=== PATIENT | female | born 1945 | race Caucasian/White ===

== ENCOUNTER 2023-01-19 06:06 | Inpatient (IN) | payer OTHER ==
[~2023-01-19] VITALS: Ht 160 cm; Wt 103.0 kg
[~2023-01-19 06:06] MED LIST: ACET-1156 PO; ACET-6 PO; ALEN35TA18 PO; ANAS1TAB7 PO; CALC667C PO; CARV3.1240 PO; CHOL100055 PO; DIPH25CA29 PO; FLUO-126 PO; MELA3TAB27 PO; METH5T PO; MONT-8 OR; NORPTMEDS CO; PRAV20TA3 GT; WARF3TAB22 PO
[2023-01-19] MEDS ORDERED: MORPHINE SULF PF 5 MG/10 ML VIAL ONE (06:27)
[2023-01-19] MEDS ORDERED: KETOROLAC TROMETH 30 MG/ML 1ML VIAL ONE ×2 (06:27→06:53)
[2023-01-19] MEDS ORDERED: TRANEXAMIC ACID 20 ML ONE (06:29)
[2023-01-19] MEDS ORDERED: BUPIVACAINE 0.25% INJ 50ML VIAL ONE ×2 (06:29→06:46)
[2023-01-19] MEDS ORDERED: VANCOMYCIN HCL 1000 MG VL ONE (06:31)
[2023-01-19] MEDS ORDERED: EPINEPHrine HCL 1 MG/1 ML AMP ONE (06:46)
[2023-01-19] MEDS ORDERED: DexAMETHasone SOD PHOS 4 MG/1ML SDV INJ ONE (06:46)
[2023-01-19] MEDS ORDERED: ACETAMINOPHEN IV 100 ML IV ONE (06:50)
[2023-01-19] MEDS ORDERED: ceFAZolin 1GM/50ML 100 ML IV ONE (06:50)
[2023-01-19] MEDS ORDERED: DexAMETHasone SOD PHOS 10MG/1ML VIAL INJ ONE (06:53)
[2023-01-19] MEDS ORDERED: PROPOFOL 10 MG/ML 20 ML IV ONE ×2 (06:53→08:13)
[2023-01-19] MEDS ORDERED: GLYCOPYRROLATE 0.2 MG/ML 1ML VIAL ONE (06:53)
[2023-01-19] MEDS ORDERED: ONDANSETRON HCL 4 MG/2 ML VIAL ONE (06:53)
[2023-01-19] MEDS ORDERED: LIDOCAINE 2% (LOCAL ANESTH.) PF 5ml SDV ONE (06:53)
[2023-01-19] MEDS ORDERED: PREGABALIN CAPSULE 75 MG CAP PO ONE (07:00)
[2023-01-19] MEDS ORDERED: ACETAMINOPHEN IV 1000 MG/100ML (10MG/ML) IV ONE (07:00)
[2023-01-19] MEDS ORDERED: CELECOXIB 100 MG CAP PO ONE (07:00)
[2023-01-19] MEDS ORDERED: PREGABALIN CAPSULE 75 MG CAP ONE (07:15)
[2023-01-19] MEDS ORDERED: MIDAZOLAM HCL 2MG/2ML 2ml VIAL (1mg/ml) ONE (07:16)
[2023-01-19] MEDS ORDERED: KETAMINE 50mg/ML 10ml Vial (500mg/10ml) IV ONE (07:20)
[2023-01-19] MEDS ORDERED: PHENYLEPHRINE HCL 10 MG/ML VL ONE (07:43)
[2023-01-19] MEDS ORDERED: STERILE WATER 10 ML ONE (07:43)
[2023-01-19] MEDS ORDERED: diphenhdrAMINE HCL 25 MG CAP PO PRN (09:00)
[2023-01-19] MEDS ORDERED: MORPHINE SULFATE INJ 2 MG/ml SYRG IV PRN (09:15)
[2023-01-19] MEDS ORDERED: HYDROcodone-ACET 5/325MG TAB PO PRN (09:15)
[2023-01-19] MEDS ORDERED: NITROGLYCERIN 0.4 MG SL TAB SL PRN (09:15)
[2023-01-19] MEDS: LACTATED RINGER'S 1,000 ML IV SCH ×2 (09:15→15:00)
[2023-01-19] MEDS ORDERED: ONDANSETRON HCL 4 MG/2 ML VIAL IV PRN (09:15)
[2023-01-19 12:30] VITALS: BP 156/77
[2023-01-19 12:50] VITALS: BP 156/77
[2023-01-19] MEDS: MONTELUKAST SODIUM 10 MG TAB PO SCH (14:00)
[2023-01-19] MEDS: FLUoxetine HCL 10 MG CAP PO SCH (14:00)
[2023-01-19] MEDS: CHOLECALCIFEROL (VITD3) 1,000UNIT=25mCg TAB PO SCH (14:00)
[2023-01-19] MEDS: WARFARIN SODIUM 3.5 MG PO SCH (14:00)
[2023-01-19] MEDS: DOCUSATE SOD 100 MG CAP PO SCH ×2 (14:00→21:51)
[2023-01-19] MEDS: CARVEDILOL 3.125 MG TAB PO SCH (14:00)
[2023-01-19] MEDS: methIMAzole 5 MG TAB PO SCH (14:02)
[2023-01-19] MEDS: SODIUM CHLOR 0.9% PF (SALINE LOCK) 10ML VIAL/SYR IV SCH ×2 (15:00→22:06)
[2023-01-19] MEDS: ceFAZolin 2 GM/D5W100ml 100 ML IV SCH ×2 (15:19→21:51)
[2023-01-19 16:03] VITALS: BP 156/77
[2023-01-19 17:00] VITALS: BP 117/73
[2023-01-19] MEDS: PRAVASTATIN SODIUM 20 MG TAB GT SCH (21:51)
[2023-01-19 22:44] VITALS: BP 135/75
[2023-01-20 04:49] VITALS: BP 163/58
[2023-01-20 05:48] LABS: Hematocrit 30.8 % (36.0-46.0); Hemoglobin 10.3 g/dL (12.2-16.2)
[2023-01-20] MEDS: LACTATED RINGER'S 1,000 ML IV SCH ×2 (05:49→15:04)
[2023-01-20] MEDS: ceFAZolin 2 GM/D5W100ml 100 ML IV SCH (05:49)
[2023-01-20] MEDS: SODIUM CHLOR 0.9% PF (SALINE LOCK) 10ML VIAL/SYR IV SCH ×3 (06:00→22:07)
[2023-01-20 06:14] LABS: Calcium 8.4 mg/dL (8.5-10.1); Potassium 4.1 mmol/L (3.5-5.1)
[2023-01-20 06:18] LABS: Bilirubin, Total 0.5 mg/dL (0.2-1.0)
[2023-01-20 08:00] VITALS: BP 145/68
[2023-01-20 09:16] VITALS: BP 145/68
[2023-01-20] MEDS: MONTELUKAST SODIUM 10 MG TAB PO SCH (10:00)
[2023-01-20] MEDS: CARVEDILOL 3.125 MG TAB PO SCH (10:00)
[2023-01-20] MEDS: CHOLECALCIFEROL (VITD3) 1,000UNIT=25mCg TAB PO SCH (10:00)
[2023-01-20] MEDS: methIMAzole 5 MG TAB PO SCH (10:00)
[2023-01-20] MEDS: FLUoxetine HCL 10 MG CAP PO SCH (10:00)
[2023-01-20] MEDS: DOCUSATE SOD 100 MG CAP PO SCH ×2 (10:00→22:00)
[2023-01-20] MEDS: WARFARIN SODIUM 3.5 MG PO SCH (10:00)
[2023-01-20 12:38] VITALS: BP 168/69
[2023-01-20] MEDS: HYDROmorphone HCL 2 MG/ML VL/or syr IV PRN ×2 (16:13→23:08)
[2023-01-20] MEDS ORDERED: hydrALAZINE HCL 20 MG/ML VL IV PRN (16:30)
[2023-01-20 17:00] VITALS: BP 149/72
[2023-01-20 22:00] VITALS: BP 123/61
[2023-01-20] MEDS: PRAVASTATIN SODIUM 20 MG TAB GT SCH (22:00)
[2023-01-20] MEDS: ENOXAPARIN SOD 120 MG/0.8 ML SYRINGE SC SCH (22:07)
[2023-01-21] MEDS: LACTATED RINGER'S 1,000 ML IV SCH ×3 (03:42→21:23)
[2023-01-21 05:00] VITALS: BP 145/86
[2023-01-21] MEDS: HYDROmorphone HCL 2 MG/ML VL/or syr IV PRN ×3 (05:02→21:10)
[2023-01-21 06:00] LABS: Hematocrit 28.8 % (36.0-46.0); Hemoglobin 9.8 g/dL (12.2-16.2)
[2023-01-21] MEDS: SODIUM CHLOR 0.9% PF (SALINE LOCK) 10ML VIAL/SYR IV SCH ×3 (06:09→21:24)
[2023-01-21 09:00] VITALS: BP 118/41
[2023-01-21] MEDS: MONTELUKAST SODIUM 10 MG TAB PO SCH (10:00)
[2023-01-21] MEDS: FLUoxetine HCL 10 MG CAP PO SCH (10:00)
[2023-01-21] MEDS: CHOLECALCIFEROL (VITD3) 1,000UNIT=25mCg TAB PO SCH (10:00)
[2023-01-21] MEDS: methIMAzole 5 MG TAB PO SCH (10:00)
[2023-01-21] MEDS: CARVEDILOL 3.125 MG TAB PO SCH (10:00)
[2023-01-21] MEDS: DOCUSATE SOD 100 MG CAP PO SCH ×2 (10:00→21:24)
[2023-01-21] MEDS: ENOXAPARIN SOD 120 MG/0.8 ML SYRINGE SC SCH ×2 (11:04→21:08)
[2023-01-21 12:09] VITALS: BP 158/84
[2023-01-21 17:00] VITALS: BP 152/70
[2023-01-21] MEDS: PRAVASTATIN SODIUM 20 MG TAB GT SCH (21:08)
[2023-01-21 22:00] VITALS: BP 137/68
[2023-01-22] MEDS: HYDROmorphone HCL 2 MG/ML VL/or syr IV PRN (04:31)
[2023-01-22 05:00] VITALS: BP 158/81
[2023-01-22] MEDS: SODIUM CHLOR 0.9% PF (SALINE LOCK) 10ML VIAL/SYR IV SCH ×2 (06:03→14:18)
[2023-01-22 06:37] LABS: Hematocrit 27.1 % (36.0-46.0); Hemoglobin 9.4 g/dL (12.2-16.2)
[2023-01-22] MEDS ORDERED: GASTROGRAFIN 120 ML SOL ONE (08:29)
[2023-01-22 09:06] VITALS: BP 149/78
[2023-01-22] MEDS: CARVEDILOL 3.125 MG TAB PO SCH (09:37)
[2023-01-22] MEDS: DOCUSATE SOD 100 MG CAP PO SCH (09:37)
[2023-01-22] MEDS: FLUoxetine HCL 10 MG CAP PO SCH (09:38)
[2023-01-22] MEDS: methIMAzole 5 MG TAB PO SCH (09:39)
[2023-01-22] MEDS: MONTELUKAST SODIUM 10 MG TAB PO SCH (10:00)
[2023-01-22] MEDS ORDERED: ENOXAPARIN SOD 100 MG/1 ML SYRINGE SC SCH (10:00)
[2023-01-22] MEDS: CHOLECALCIFEROL (VITD3) 1,000UNIT=25mCg TAB PO SCH (11:30)
[2023-01-22 12:30] VITALS: BP 129/77
[2023-01-22 17:20] VITALS: BP 166/62
[2023-01-22 19:04] LABS: INR 1.1 (0.9-1.15); Partial Thromboplastin Time 31.3 sec (24.6-33.4)
== END 2023-01-22 21:30 | DRG 470 ==
LOC: SUR 06:06 → TELE 09:11 → TELE-CENTR 12:05
PROVIDERS: ADMIT Orthopaedic Surgery Adult Reconstructive Orthopaedic Surgery; ATTEND Internal Medicine
PROC: 8E0YXBZ Computer Assisted Procedure of Lower Extremity (ICD-10-PCS; 2023-01-19)
PROC: 0SRD0J9 Replacement of Left Knee Joint with Synthetic Substitute, Cemented, Open Approach (ICD-10-PCS; principal; 2023-01-19 07:32)
DX: M17.12 Unilateral primary osteoarthritis, left knee (principal); Z20.822 Contact with and (suspected) exposure to COVID-19; E03.9 Hypothyroidism, unspecified; F32.A Depression, unspecified; F41.9 Anxiety disorder, unspecified; I10 Essential (primary) hypertension; I48.0 Paroxysmal atrial fibrillation; K21.00 Gastro-esophageal reflux disease with esophagitis, without bleeding; Z96.652 Presence of left artificial knee joint; M81.0 Age-related osteoporosis without current pathological fracture; Z90.49 Acquired absence of other specified parts of digestive tract; Z85.3 Personal history of malignant neoplasm of breast; Z79.01 Long term (current) use of anticoagulants; Z82.3 Family history of stroke; Z90.13 Acquired absence of bilateral breasts and nipples
CPT/HCPCS: 36415; 73562; 74220; 80053; 85014; 85018; 85610; 85730; 87426; 97110; 97116; 97163; 97530; C1713; G0378; J0131; J0171; J0690; J1100; J1885; J2001; J2250; J2405; J2704; J3490

== ENCOUNTER 2025-11-01 06:50 | Day surgery (SDC) | payer OTHER ==
[2025-11-01] VITALS (7 sets, daily range): BP systolic 152–180; BP diastolic 70–100; PULSE 65–73; RESP 10–21; O2SAT 96–100
[~2025-11-01] VITALS: Ht 160 cm; Wt 98.0 kg
[~2025-11-01 06:50] MED LIST changes: -ACET-1156 PO; +ACET-1881 PO; +DIPH-753 PO; -DIPH25CA29 PO; +FURO20TA3 PO; +LOSA-533 PO; -MELA3TAB27 PO; -METH5T PO; +METO25TA93 PO; -NORPTMEDS CO; +PANT40T PO; +POTA-220 PO; -PRAV20TA3 GT; +PRAV20TA3 PO; +WARF-111 PO; -WARF3TAB22 PO
[2025-11-01] MEDS ORDERED: IODIXANOL 320MG/ML 100ML BTL IV ONE (09:36)
--- NOTE | 2025-11-01 13:53 | DVHOP2 ---
Operative Report - 2 Report Details Date: 11/01/25 Preop Diagnosis: Pulmonary hypertension. Tricuspid insufficiency. CAD. Postop Diagnosis: [id number] pulmonary hypertension. Surgeon: Reggie Crowley MD Anesthesiologist: Conscious sedation. I personally ordered the administration of conscious sedation and monitored the patient [id number] minutes during the procedure. Anesthesia: Mac, Local Consent: The patient was informed of the risks and benefits of the procedure. These include but are not limited to complications of anesthesia, postoperative infection, incomplete relief of symptoms, recurrence of symptoms, damage to blood vessels, nerves and tendons, deep venous thrombosis, pulmonary embolism and possible need for repeat surgery in the future. Complications: No complications. Findings: No significant CAD. Hdyl-[id number]-chnwjxwt pulmonary hypertension. Indications for Surgery: Significant tricuspid insufficiency. Pulmonary hypertension. Name of Procedure Performed Right and left heart catheterization. Bilateral cine coronary angiography. Left ventriculography. Procedure Details Procedure Details: Prior local anesthesia with 2% lidocaine to the right antecubital area and right wrist the patient was prepped and draped in usual fashion followed by placement of a [place] catheter via the right brachial vein. We advanced the catheter into the right atrium right ventricle pulmonary artery and capillary wedge pressure positions where pressures were obtained and recorded without complications. Cardiac outputs were determined by the thermodilution technique in triplicate. O2 saturations were not obtained. With ultrasound and fluoroscopic guidance we obtained access into the radial artery however we could not pass the wire beyond the level of the elbow. 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 Secondary branches supply the lateral ulnar distribution but this is limited. We then accessed the femoral artery given the inability to pass the catheter and to prevent any significant trauma to the radial artery. We placed a six Croatian sheath into the right femoral artery and Royal catheters were used to cannulate both right and left coronary ostia and a pigtail catheter was used for ventriculography without complications Hemodynamics: Right atrial pressure was five with a right ventricular pressure of 40/5 with a pulmonary artery pressure of 40 over15 with a capillary wedge pressure of nine. Aortic blood pressure was 110/70 with an end-diastolic pressure of 10. There was no gradient across the aortic valve on pullback. Cardiac output was approximately 4.3. Coronary anatomy the RCA is a large vessel it is normal in its proximal mid and distal segments. PDA is rather small but free of significant disease. Posterolateral branches are not noted. The left main is large and normal.. Left anterior descending is a large vessel it is normal in its proximal mid and distal segments. There was a slight 10-15% stenosis at its mid section that is not flow limiting and does not appear to be significant. Diagonals and septals are free of significant disease. The circumflex is large and codominant. Two large obtuse marginal branches with the inferior posterolateral branches supplying the posterolateral and inferior wall of the left ventricle along with the RCA. Ventriculography in the PETTIT projection shows an EF of approximately 60%. Impression: Normal left ventricular end-diastolic pressure at rest with moderately elevated pulmonary pressures and a mean PA pressure of approximately 35 mmHg consistent with pulmonary hypertension. No significant coronary artery disease. Normal left ventricular ejection fraction. Recommendations: Patient will be started on pulmonary hypertension medication as an outpatient. Condition Good Disposition Home Date of Service: Nov 01, 2025 Billing Provider: REGGIE CROWLEY Sr., MD Cardiology Common Codes: 50866-HROLCHN INP/OBS CARE (High) Cardiology Procedure Codes: 79460-TIXT HEART CATH W/INTRA INJ, 28527-WKG & PLCMT OF FLOW DIR CATH REGGIE CROWLEY Sr., MD Nov 01, 2025 13:53
== END 2025-11-01 12:00 | disposition home or self-care (01) ==
LOC: CATH 06:50
PROVIDERS: ATTEND Internal Medicine
DX: I07.1 Rheumatic tricuspid insufficiency (principal); I27.20 Pulmonary hypertension, unspecified; I10 Essential (primary) hypertension; E78.5 Hyperlipidemia, unspecified; Z79.899 Other long term (current) drug therapy; Z87.891 Personal history of nicotine dependence
CPT/HCPCS: 93460; C1760; C1769; C1894; Q9967; 99152; 99153